=== PATIENT | male | born 2000 | race Hispanic/Latino ===

== ENCOUNTER 2022-08-26 13:55 | Emergency (ER) | payer OTHER, BC ==
[~2022-08-26] VITALS: Ht 177.8 cm; Wt 93.0 kg
[2022-08-26 13:56] VITALS: BP 115/75
[2022-08-26] MEDS: KETOROLAC 60 MG VIAL (30MG/ML) IM ONE ×2 (16:41→17:31)
[2022-08-26] MEDS ORDERED: CYCL5TAB PO (18:11)
[2022-08-26] MEDS ORDERED: IBUP-2070 PO (18:11)
== END 2022-08-26 18:23 | disposition home or self-care (01) ==
LOC: EDH 13:55
DX: S40.012A Contusion of left shoulder, initial encounter (principal); S60.222A Contusion of left hand, initial encounter; S80.01XA Contusion of right knee, initial encounter; Z79.1 Long term (current) use of non-steroidal anti-inflammatories (NSAID); V49.49XA Driver injured in collision with other motor vehicles in traffic accident, initial encounter; Y93.89 Activity, other specified; Y92.89 Other specified places as the place of occurrence of the external cause; Y99.8 Other external cause status
CPT/HCPCS: 99285; 70450; 73120; 73562; 73030; 72125; 96372; J1885